=== PATIENT | female | born 1980 | race Caucasian/White ===

== ENCOUNTER 2023-06-09 12:39 | Emergency (ER) | payer BC ==
[2023-06-09 14:11] LABS: Anisocytosis Slight; Basophils # (A) 0.1 k/uL (0-0.2); Basophils % (A) 1 %; Eosinophils # (A) 0.1 k/uL (0-0.7); Eosinophils % (A) 1 %; HCT 44.1 % (34.0-46.0); HGB 14.4 gm/dL (11.4-16.0); Lymphocytes # (A) 0.8 k/uL (1.0-4.8); Lymphocytes % (A) 8 %; MCHC 32.7 g/dL (31.0-37.0); MCV 88.8 fL (80.0-100.0); Mean Platelet Volume 8.5; Monocytes # (A) 0.4 k/uL (0-1.0); Monocytes % (A) 4 %; Neutrophils # (A) 8.6 k/uL (1.3-7.7); Neutrophils % (A) 85 %; Platelet Count 422 k/uL (150-450); RBC 4.97 m/uL (3.80-5.40); RDW 16.7 % (11.5-15.5); WBC 10.1 k/uL (3.8-10.6)
[2023-06-09 14:33] LABS: ALT 295 U/L (4-34); AST 165 U/L (14-36); African American GFR (CKD) >90 (>60 ml/min/1.73 sqM); Albumin 4.1 g/dL (3.5-5.0); Alkaline Phosphatase 364 U/L (38-126); Amylase 41 U/L (30-110); Anion Gap 15 mmol/L; Blood Urea Nitrogen 8 mg/dL (7-17); Calcium 9.7 mg/dL (8.4-10.2); Carbon Dioxide 23 mmol/L (22-30); Chloride 101 mmol/L (98-107); Glucose 123 mg/dL (74-99); Lipase 46 U/L (23-300); Non-African American GFR(CKD) >90 (>60 ml/min/1.73 sqM); Potassium 4.1 mmol/L (3.5-5.1); Sodium 139 mmol/L (137-145); Total Bilirubin 10.1 mg/dL (0.2-1.3); Total Protein 8.2 g/dL (6.3-8.2)
--- NOTE | 2023-06-09 15:15 | ED ---
General Adult HPI - General Source: patient, RN notes reviewed Mode of arrival: ambulatory Limitations: no limitations <Gema Benitez - Last Filed: 06/09/23 15:13> <Sanam Nelson - Last Filed: 06/09/23 17:59> - General Chief complaint: Abdominal Pain Stated complaint: gallbladder issue Time Seen by Provider: 06/09/23 15:13 - History of Present Illness Initial comments: This is a 43-year-old female who presents to the emergency department for skin changes. States that last week she had abdominal pain and was diagnosed with a UTI and started on antibiotics. She later started to develop yellowing of the skin and eyes, and is unsure if it is related. Denies any history of liver problems. (Gema Benitez) 43-year-old female presenting with chief complaint of yellow tinted skin and eyes. Patient states that last week she was having severe upper abdominal pain as well as nausea and vomiting. This went on for several days, she was then seen at urgent care and treated for UTI with Keflex. She states that she had improvement and today when she went back to work her coworkers noticed that she had a yellow tint to the skin. Patient states she is not experiencing any pain nausea or other symptoms at this time. No fever or chills. No chest pain or difficulty breathing. No dysuria or hematuria. (Sanam Nelson) - Related Data Allergies Allergy/AdvReac Type Severity Reaction Status Date / Time No Known Allergies Allergy Verified 06/09/23 13:33 Review of Systems ROS Other: All systems not noted in ROS Statement are negative. <Gema Benitez - Last Filed: 06/09/23 15:13> ROS Other: All systems not noted in ROS Statement are negative. <Sanam Nelson - Last Filed: 06/09/23 17:59> ROS Statement: Those systems with pertinent positive or pertinent negative responses have been documented in the HPI. Past Medical History Past Medical History: No Reported History History of Any Multi-Drug Resistant Organisms: None Reported Past Surgical History: No Surgical Hx Reported Past Psychological History: No Psychological Hx Reported Smoking Status: Current some day smoker Past Alcohol Use History: None Reported Past Drug Use History: Marijuana <Gema Benitez - Last Filed: 06/09/23 15:13> General Exam Limitations: no limitations <Gema Benitez - Last Filed: 06/09/23 15:13> Limitations: no limitations General appearance: alert, in no apparent distress Head exam: Present: atraumatic, normocephalic, normal inspection Eye exam: Present: EOMI, scleral icterus Neck exam: Present: normal inspection Respiratory exam: Present: normal lung sounds bilaterally. Absent: respiratory distress, wheezes, rales, rhonchi, stridor Cardiovascular Exam: Present: regular rate, normal rhythm, normal heart sounds. Absent: systolic murmur, diastolic murmur, rubs, gallop, clicks GI/Abdominal exam: Present: soft. Absent: distended, tenderness, guarding, rebound, rigid Neurological exam: Present: alert, oriented X3 Psychiatric exam: Present: normal affect, normal mood Skin exam: Present: warm, dry, other (Jaundice) <Sanam Nelson - Last Filed: 06/09/23 17:59> - General Exam Comments Initial Comments: Visual Physical Exam Vital signs reviewed General: Well-appearing, nontoxic, no acute distress. Head: Normocephalic, atraumatic Eyes: PERRLA, EOMI, scleral icterus ENT: Airway patent Chest: Nonlabored breathing Skin: Jaundice appearing Neuro: Alert and oriented 3 Musculoskeletal: No gross abnormalities (Gema Benitez) Course Vital Signs 06/09/23 13:28 Temperature 98.3 F Pulse Rate 82 Respiratory 16 Rate Blood Pressure 145/86 O2 Sat by Pulse 96 Oximetry Medical Decision Making - Lab Data Result diagrams: 06/09/23 13:59 06/09/23 13:59 <Gema Benitez - Last Filed: 06/09/23 15:13> - Lab Data Result diagrams: 06/09/23 15:06 06/09/23 13:59 <Sanam Nelson - Last Filed: 06/09/23 17:59> - Medical Decision Making I performed the QuickNote portion of this chart. Signed Gema Benitez PA-C. (Gema Benitez) Was pt. sent in by a medical professional or institution ([facility]rez, [employer], urgent care, hospital, or half-way...) When possible be specific @ -No Did you speak to anyone other than the patient for history (EMS, parent, family, police, friend...)? What history was obtained from this source @ -No Did you review nursing and triage notes (agree or disagree)? Why? @ -I reviewed and agree with nursing and triage notes Were old charts reviewed (outside hosp., previous admission, EMS record, old EKG, old radiological studies, urgent care reports/EKG's, half-way records)? Report findings @ -No old charts were reviewed Differential Diagnosis (chest pain, altered mental status, abdominal pain women, abdominal pain men, vaginal bleeding, weakness, fever, dyspnea, syncope, headache, dizziness, GI bleed, back pain, seizure, CVA, palpatations, mental health, musculoskeletal)? @ -Differential includes cholecystitis, choledocholithiasis, cholangitis, hepatitis, cirrhosis, this is not an all inclusive list EKG interpreted by me (3pts min.). @ -As above X-rays interpreted by me (1pt min.). @ -None done CT interpreted by me (1pt min.). @ -None done U/S interpreted by me (1pt. min.). @ -Ultrasound shows hydropic gallbladder with cholelithiasis. Dilated common bile duct with questionable echogenic foci distally which may suggest choledocholithiasis. Echogenic liver suggesting diffuse liver disease, which statistically most often is on the basis of hepatic steatosis. What testing was considered but not performed or refused? (CT, X-rays, U/S, labs)? Why? @ -None What meds were considered but not given or refused? Why? @ -None Did you discuss the management of the patient with other professionals (professionals i.e. , PA, [employer], lab, RT, psych nurse, oncology social worker, manager grocery, teacher, police officer booking, manager case)? Give summary @ -I spoke with Dr. Alexis at [facility] who accepted transfer Was smoking cessation discussed for >3mins.? @ -No Was critical care preformed (if so, how long)? @ -No Were there social determinants of health that impacted care today? How? (Homelessness, low income, unemployed, alcoholism, drug addiction, transportation, low edu. Level, literacy, decrease access to med. care, prison, rehab)? @ -No Was there de-escalation of care discussed even if they declined (Discuss DNR or withdrawal of care, Hospice)? DNR status @ -No What co-morbidities impacted this encounter? (DM, HTN, Smoking, COPD, CAD, Cancer, CVA, ARF, Chemo, Hep., AIDS, mental health diagnosis, sleep apnea, morbid obesity)? @ -None Was patient admitted / discharged? Hospital course, mention meds given and route, prescriptions, significant lab abnormalities, going to OR and other pertinent info. @ -43-year-old female presenting with chief complaint of yellowing to the skin and eyes. She states that last week she was having severe upper abdominal pain and vomiting which has since resolved. History and physical examination are c onducted. Total bilirubin 10.1. AST 165 and ALT 295. Alkaline phosphatase 364. Ultrasound shows hydropic gallbladder with cholelithiasis as well as a dilated common bile duct with suspected choledocholithiasis. Patient will require transfer for GI services. She has requested to be transferred to [facility]. Change him in excess transfer. Patient is treated empirically with Zosyn. She is agreeable with this plan. I discussed this case with my attending Dr. Reich. Undiagnosed new problem with uncertain prognosis? @ -No Drug Therapy requiring intensive monitoring for toxicity (Heparin, Nitro, Insulin, Cardizem)? @ -No Were any procedures done? @ -No Diagnosis/symptom? @ -Choledocholithiasis Acute, or Chronic, or Acute on Chronic? @ -Acute Uncomplicated (without systemic symptoms) or Complicated (systemic symptoms)? @ -Complicated Side effects of treatment? @ -No Exacerbation, Progression, or Severe Exacerbation? @ -No Poses a threat to life or bodily function? How? (Chest pain, [place], [place], pneumonia, PE, COPD, DKA, ARF, appy, cholecystitis, CVA, Diverticulitis, Homicidal, Suicidal, threat to staff... and all critical care pts) @ -Yes (Sanam Nelson) - Lab Data Lab Results 06/09/23 06/09/23 06/09/23 Range/Units 13:59 13:59 13:59 WBC 10.1 (3.8-10.6) k/uL RBC 4.97 (3.80-5.40) m/uL Hgb 14.4 (11.4-16.0) gm/dL Hct 44.1 (34.0-46.0) % MCV 88.8 (80.0-100.0) fL MCH 29.0 (25.0-35.0) pg MCHC 32.7 (31.0-37.0) g/dL RDW 16.7 H (11.5-15.5) % Plt Count 422 (150-450) k/uL MPV 8.5 Neutrophils % 85 % Lymphocytes % 8 % Monocytes % 4 % Eosinophils % 1 % Basophils % 1 % Neutrophils # 8.6 H (1.3-7.7) k/uL Lymphocytes # 0.8 L (1.0-4.8) k/uL Monocytes # 0.4 (0-1.0) k/uL Eosinophils # 0.1 (0-0.7) k/uL Basophils # 0.1 (0-0.2) k/uL Anisocytosis Slight Sodium 139 (137-145) mmol/L Potassium 4.1 (3.5-5.1) mmol/L Chloride 101 (98-107) mmol/L Carbon Dioxide 23 (22-30) mmol/L Anion Gap 15 mmol/L BUN 8 (7-17) mg/dL Creatinine 0.70 (0.52-1.04) mg/dL Est GFR (CKD-EPI)AfAm >90 (>60 ml/min/1.73 sqM) Est GFR (CKD-EPI)NonAf >90 (>60 ml/min/1.73 sqM) Glucose 123 H (74-99) mg/dL Plasma Lactic Acid Kyle 1.4 (0.7-2.0) mmol/L Calcium 9.7 (8.4-10.2) mg/dL Total Bilirubin 10.1 H (0.2-1.3) mg/dL AST 165 H (14-36) U/L ALT 295 H (4-34) U/L Alkaline Phosphatase 364 H (38-126) U/L Total Protein 8.2 (6.3-8.2) g/dL Albumin 4.1 (3.5-5.0) g/dL Amylase 41 (30-110) U/L Lipase 46 (23-300) U/L /14/ Range/Units 15:06 WBC 9.9 (3.8-10.6) k/uL RBC 5.02 (3.80-5.40) m/uL Hgb 14.2 (11.4-16.0) gm/dL Hct 43.9 (34.0-46.0) % MCV 87.3 (80.0-100.0) fL MCH 28.3 (25.0-35.0) pg MCHC 32.4 (31.0-37.0) g/dL RDW 16.7 H (11.5-15.5) % Plt Count 420 (150-450) k/uL MPV 9.0 Neutrophils % 85 % Lymphocytes % 9 % Monocytes % 3 % Eosinophils % 1 % Basophils % 1 % Neutrophils # 8.5 H (1.3-7.7) k/uL Lymphocytes # 0.9 L (1.0-4.8) k/uL Monocytes # 0.3 (0-1.0) k/uL Eosinophils # 0.1 (0-0.7) k/uL Basophils # 0.1 (0-0.2) k/uL Anisocytosis Slight Sodium (137-145) mmol/L Potassium (3.5-5.1) mmol/L Chloride (98-107) mmol/L Carbon Dioxide (22-30) mmol/L Anion Gap mmol/L BUN (7-17) mg/dL Creatinine (0.52-1.04) mg/dL Est GFR (CKD-EPI)AfAm (>60 ml/min/1.73 sqM) Est GFR (CKD-EPI)NonAf (>60 ml/min/1.73 sqM) Glucose (74-99) mg/dL Plasma Lactic Acid Kyle (0.7-2.0) mmol/L Calcium (8.4-10.2) mg/dL Total Bilirubin (0.2-1.3) mg/dL AST (14-36) U/L ALT (4-34) U/L Alkaline Phosphatase (38-126) U/L Total Protein (6.3-8.2) g/dL Albumin (3.5-5.0) g/dL Amylase (30-110) U/L Lipase (23-300) U/L Disposition <Gema Benitez - Last Filed: 06/09/23 15:13> Time of Disposition: 17:49 - Out of Hospital Transfer - Req. Specs Out of Hospital Transfer - Requested Specifics: Other Emergency Center ([facility]) <Sanam Nelson - Last Filed: 06/09/23 17:59> Clinical Impression: Choledocholithiasis Disposition: OTHER INSTITUTION NOT DEFINED Condition: Stable Referrals: None,Stated [Primary Care Provider] - 1-2 days
[2023-06-09 16:33] LABS: Anisocytosis Slight; Basophils # (A) 0.1 k/uL (0-0.2); Basophils % (A) 1 %; Eosinophils # (A) 0.1 k/uL (0-0.7); Eosinophils % (A) 1 %; HCT 43.9 % (34.0-46.0); HGB 14.2 gm/dL (11.4-16.0); Lymphocytes # (A) 0.9 k/uL (1.0-4.8); Lymphocytes % (A) 9 %; MCH 28.3 pg (25.0-35.0); MCHC 32.4 g/dL (31.0-37.0); MCV 87.3 fL (80.0-100.0); Monocytes # (A) 0.3 k/uL (0-1.0); Monocytes % (A) 3 %; Neutrophils # (A) 8.5 k/uL (1.3-7.7); Neutrophils % (A) 85 %; Platelet Count 420 k/uL (150-450); RBC 5.02 m/uL (3.80-5.40); RDW 16.7 % (11.5-15.5); WBC 9.9 k/uL (3.8-10.6)
--- NOTE | 2023-06-09 16:42 | US ---
EXAMINATION TYPE: US gallbladder DATE OF EXAM: 06/09/2023 COMPARISON: NONE CLINICAL INDICATION: Female, 43 years old with history of JAUNDICE, abnormal labs; Jaundice, abnormal labs, nausea, constipation for multiple days. RUQ pain for multiple days. TECHNIQUE: Multiple sonographic images of the right upper quadrant are obtained. FINDINGS: EXAM MEASUREMENTS: Liver Length: 15.9 cm Gallbladder Wall: 0.3 cm CBD: 1.8 cm Right Kidney: 9.8 x 4.2 x 5.9 cm ENAMEL SHADER NOTES:LIMITED exam due to patient body habitus and overlying bowel gas. Pancreas: Obscured by bowel gas Liver: Portions obscured by bowel gas. Heterogeneously coarsened echotexture with loss of internal a rchitecture. Gallbladder: Hydropic. Two echogenic foci seen within with posterior shadowing. Evidence for sonographic Torres's sign: No CBD: Dilated. There is an echogenic area seen within the distal duct, near the pancreatic head. Ques tionable echogenic foci. Right Kidney: wnl as best visualized. IMPRESSION: 1. Limited study. 2. Hydropic gallbladder with cholelithiasis. 3. Dilated CBD with questionable echogenic foci distally which may suggest choledocholithiasis. 4. Echogenic liver suggesting diffuse liver disease, which statistically most often is on the basis of hepatic steatosis. Differential diagnosis includes artifact on the basis of body habitus. The find ing does limit evaluation of the liver parenchyma.
[2023-06-09] MEDS ORDERED: PIPERACILLIN-TAZOBACTAM 3.375 GM in SODIUM CHLORIDE 0.9% 100 ML IVPB STA (17:41)
[2023-06-09 18:22] VITALS: PULSE 87; RESP 18; TEMP 98.2
[2023-06-09 19:51] VITALS: BP 165/79
== END 2023-06-09 19:40 | disposition other institution (70) ==
LOC: EC 12:39
DX: K80.70 Calculus of gallbladder and bile duct without cholecystitis without obstruction (principal); F17.200 Nicotine dependence, unspecified, uncomplicated; F12.90 Cannabis use, unspecified, uncomplicated
CPT/HCPCS: 36415; 80053; 82150; 83605; 83690; 85025; 76705; 99285; 96365; J2543

== ENCOUNTER → 2023-06-24 | Outpatient (CLI) | payer BC ==
[2023-06-24 16:04] LABS: Albumin 3.7 g/dL (3.8-4.9); Albumin/Globulin Ratio 1.16 Ratio (1.60-3.17); Bilirubin, Conjugated 0.54 mg/dL (0.20-0.40); Bilirubin,Unconjugated 0.56 mg/dL (0.20-1.00); Globulin 3.2 g/dL (1.6-3.3); Total Bilirubin 1.1 mg/dL (0.3-1.2); Total Protein 6.9 g/dL (6.2-8.2)
== END | disposition home or self-care (01) ==
LOC: LABWHC1 09:29
DX: Z00.00 Encounter for general adult medical examination without abnormal findings (principal)
CPT/HCPCS: 36415; 80076